=== PATIENT | male | born 1960 ===

== ENCOUNTER 2016-07-15 14:49 | Observation (INO) | payer BC ==
[~2016-07-15] VITALS: Ht 172.7 cm; Wt 93.0 kg
[2016-07-15 15:31] LABS: HEMOGLOBIN 14.2 gm/dl (14.0-17.5); RED BLOOD COUNT 4.63 M/UL (4.20-5.50); WHITE BLOOD COUNT 7.4 K/UL (4.5-11.0)
[2016-07-15 15:48] LABS: BUN/CREATININE RATIO 9 (0-10)
[2016-07-16] MEDS ORDERED: ZOCOR 40 MG TAB40 MG PO (00:02)
[2016-07-16] MEDS ORDERED: PROTONIX40 M1 PO (00:02)
[2016-07-16] MEDS ORDERED: VITAMIN B COMP1 EACH PO (00:03)
[2016-07-16] MEDS ORDERED: LISINOPRIL10 MG PO (00:03)
[2016-07-16] MEDS ORDERED: ASPIR 8181 MG PO (00:03)
[2016-07-16 07:08] LABS: HEMOGLOBIN 13.5 gm/dl (14.0-17.5); RED BLOOD COUNT 4.51 M/UL (4.20-5.50); WHITE BLOOD COUNT 6.7 K/UL (4.5-11.0)
[2016-07-16 07:24] LABS: BUN/CREATININE RATIO 8 (0-10)
[2016-07-18] MEDS ORDERED: CIPRO500 MG PO (12:41)
[2016-07-18] MEDS ORDERED: FLAGYL500 MG PO (12:42)
== END 2016-07-18 13:19 | disposition home or self-care (01) ==
LOC: ER1 14:49 → ZEROF 20:11 → M/S 20:11
PROVIDERS: Emergency Medicine; ADMIT Family Medicine
DX: K57.20 Diverticulitis of large intestine with perforation and abscess without bleeding (principal); N13.30 Unspecified hydronephrosis; N13.4 Hydroureter; I10 Essential (primary) hypertension; E78.5 Hyperlipidemia, unspecified; F10.10 Alcohol abuse, uncomplicated; N26.1 Atrophy of kidney (terminal); K21.9 Gastro-esophageal reflux disease without esophagitis; E66.9 Obesity, unspecified; Z87.891 Personal history of nicotine dependence; Z82.49 Family history of ischemic heart disease and other diseases of the circulatory system; Z83.3 Family history of diabetes mellitus; Z80.9 Family history of malignant neoplasm, unspecified; Z88.8 Allergy status to other drugs, medicaments and biological substances; Z79.82 Long term (current) use of aspirin; Z79.899 Other long term (current) drug therapy; Z68.31 Body mass index [BMI] 31.0-31.9, adult
CPT/HCPCS: 36415; 80048; 80053; 81001; 83605; 83690; 85025; 86140; 87040; 93005; 96365; 96375; 99285; C9113; G0378; J1956; J2543; J7030; J7050

== ENCOUNTER → 2016-07-15 | Outpatient (CLI) | payer BC ==
[~2016-07-15] MED LIST: ASPIR 8181 MG PO; CIPRO500 MG PO; FLAGYL500 MG PO; LISINOPRIL10 MG PO; PROTONIX40 M1 PO; VITAMIN B COMP1 EACH PO; ZOCOR 40 MG TAB40 MG PO
== END ==
LOC: KOH-I 11:24
DX: R10.31 Right lower quadrant pain (principal); R11.0 Nausea; N27.0 Small kidney, unilateral; N26.1 Atrophy of kidney (terminal); N13.30 Unspecified hydronephrosis; K57.20 Diverticulitis of large intestine with perforation and abscess without bleeding
CPT/HCPCS: 74176

== ENCOUNTER → 2016-07-29 | Outpatient (CLI) | payer BC | LOC: KOH-I 09:35 | DX: K57.92 Diverticulitis of intestine, part unspecified, without perforation or abscess without bleeding (principal); N13.30 Unspecified hydronephrosis; N13.4 Hydroureter | CPT/HCPCS: 74177; Q9962 ==